=== PATIENT | female | born 2000 | race Two or more races ===

== ENCOUNTER 2022-11-29 14:05 | Emergency (ER) | payer OTHER, SELFPAY ==
[2022-11-29 14:13] VITALS: BP 123/87; PULSE 100; RESP 16; TEMP 37; O2SAT 97; BMI 43.2
--- NOTE | 2022-11-29 14:24 | CT_ITS ---
The [address] [address] Patient Name: RASTA BUENO MRN: [id number] date: 2000 Sex: F Assigned Patient Location: ER Current Patient Location: Accession/Order Number: [id number] Exam Date: 11/29/2022 14:55 Report Date: 11/29/2022 15:53 At the request of: SANAM LEE Procedure: CT soft tissue neck w con EXAMINATION: CT soft tissue neck w con HISTORY: dysphagia , throat swelling COMPARISON: No relevant comparison available. TECHNIQUE: Axial, Coronal, and Sagittal CT images created with IV contrast. Dose reduction techniques were achieved by using automated exposure control and/or adjustment of mA and/or kV according to patient size and/or use of iterative reconstruction technique. FINDINGS: NASOPHARYNX: No asymmetry of the fossae of Rosenmuller and torus tubarius. ORAL CAVITY: No visible mass. OROPHARYNX: Mild retropharyngeal soft tissue thickening and slightly prominent prevertebral lymph node. HYPOPHARYNX: Mild retropharyngeal soft tissue thickening and slightly prominent prevertebral lymph nodes. LARYNX: No mass or asymmetry of the vocal cords. SINUSES: No significant fluid or mucosal thickening. NECK GLANDS: No visible abnormality of the parotid, submandibular, and thyroid glands. LYMPH NODES: No pathological-appearing or enlarged lymph nodes. VASCULATURE: No suspicious abnormality. BONES: Slight reversal of the normal lordotic curvature; positioning versus muscle spasm. Mild degenerative disc disease. OTHER: No additional imaging findings. IMPRESSION: 1. Slight retropharyngeal soft tissue thickening and slightly prominent lymph nodes suggestive of inflammatory/process. Pharyngitis? Electronically authenticated by: MARCEL CHRISTIANSON Date: 11/29/2022 15:53
--- NOTE | 2022-11-29 14:27 | ED.GENADUL1 ---
HPI - General Adult General Chief complaint: Upper Respiratory Infection Stated complaint: SHORTNESS OF BREATH/ DIFFICULTY SWALLOWING Time Seen by Provider: 11/29/22 14:16 Source: patient Mode of arrival: walk-in History of Present Illness HPI narrative: Patient is a 22-year-old female presents to the emergency department for a two week history of sore throat, difficulty swallowing and concerned that her esophagus is swelling . She has not seen her physician for these symptoms, she states she believes she is now having difficulty swallowing although she is speaking and breathing easily at initial interview. She has had no fevers, she reports mild nasal congestion. She states initially she thought her symptoms were due to her anxiety but feels as though they are not better. She states her mother is a nurse and told her her esophagus may be swelling. She is unsure if she may be . Related Data Home Medications Medication Instructions Recorded Confirmed albuterol sulfate 2.5 mg/3 mL 2.5 mg inhalation Q4H PRN 11/29/22 11/29/22 (0.083 %) solution for nebulization shortness of breath or wheezing albuterol sulfate 90 mcg/actuation 2 puff inhalation Q6H PRN 11/29/22 11/29/22 aerosol inhaler (Ventolin HFA) shortness of breath or wheezing cholecalciferol (vitamin D3) 1,250 1,250 mcg PO .every week 11/29/22 11/29/22 mcg (50,000 unit) capsule docosahexaenoic acid (dha)-epa 120 1 cap PO DAILY 11/29/22 11/29/22 mg-180 mg capsule (Fish Oil) drospirenone 3 mg-ethinyl 1 tab PO DAILY 11/29/22 11/29/22 estradiol 0.02 mg tablet ferrous sulfate 325 mg (65 mg 325 mg PO BID 11/29/22 11/29/22 iron) tablet (FeroSul) fluoxetine 20 mg capsule 20 mg PO DAILY 11/29/22 11/29/22 hydroxyzine pamoate 25 mg capsule 25 mg PO DAILY PRN anxiety 11/29/22 11/29/22 levothyroxine 25 mcg tablet 25 mcg PO DAILY 11/29/22 11/29/22 loratadine 10 mg tablet 10 mg PO DAILY PRN allergy symptoms 11/29/22 11/29/22 Previous Rx's Medication Instructions Recorded amoxicillin 500 mg capsule 500 mg PO TID 10 days #30 caps 11/29/22 prednisone 20 mg tablet 60 mg PO DAILY #12 tabs 11/29/22 Allergies Allergy/AdvReac Type Severity Reaction Status Date / Time No Known Drug Allergies Allergy Verified 11/29/22 14:12 Review of Systems ROS Constitutional Denies: fever or chills Ears, nose, mouth, and throat Reports: throat pain, difficulty swallowing and nasal discharge Cardiovascular Denies: chest pain Respiratory Denies: shortness of breath Gastrointestinal Denies: nausea or vomiting Integumentary/Breast Denies: rash Neurological Denies: headache Psychiatric Reports: anxiety Exam Narrative Exam Narrative: Gen.: Awake, alert, in no distress Head: Normocephalic, atraumatic ENT: Moist mucous membranes, uvula is midline with no tonsillar edema or exudate. Clear speech with no trismus or drooling. Airway is widely open and patent. No redness or swelling under the tongue Respiratory: No respiratory distress, lungs clear bilaterally Cardio: Regular rate and rhythm Extremities: Moves extremities equally Psych: Normal mood and affect Neuro: No focal neuro deficit Skin: Warm, dry, intact Constitutional Vital Signs - 24 hr 11/29/22 14:13 11/29/22 14:54 Temperature 98.6 F Pulse Rate [Monitor] 100 H Respiratory Rate 16 Blood Pressure [Left Arm] 123/87 H Pulse Oximetry 97 Oxygen Delivery Method Room Air Room Air Course Vital Signs Vital signs: Vital Signs Temperature 98.6 F 11/29/22 14:13 Pulse Rate 100 H 11/29/22 14:13 Respiratory Rate 16 11/29/22 14:13 Blood Pressure 123/87 H 11/29/22 14:13 Pulse Oximetry 97 11/29/22 14:13 Oxygen Delivery Method Room Air 11/29/22 14:13 Temperature 98.6 F 11/29/22 14:13 Pulse Rate 100 H 11/29/22 14:13 Respiratory Rate 16 11/29/22 14:13 Blood Pressure 123/87 H 11/29/22 14:13 Pulse Oximetry 97 11/29/22 14:13 Oxygen Delivery Method Room Air 11/29/22 14:54 Medical Decision Making MDM Narrative Medical decision making narrative: Based on the patient's reported history, CT of the soft tissue of the neck was ordered as she had no evidence of airway compromise, or visible signs of infection at the pharynx. Urine test is negative, strep screen is negative and CT of the soft tissue of the neck shows slight retropharyngeal thickening consistent with possible pharyngitis. Patient will be treated for her symptoms based on the duration of her illness with amoxicillin and prednisone for swelling. She is in no distress with stable vital signs, no airway compromise, no trismus or drooling. Follow-up with PCP and return to the Emergency Room if symptoms change or worsen. Lab Data Labs: Lab Results 11/29/22 11/29/22 Range/Units 14:25 14:45 Urine HCG, Qual Negative (NEGATIVE) Streptococcus Screen Negative Imaging Data CT neck with contrast: Attestation: I have reviewed the pertinent imaging results. Radiologist's impression: Procedure: CT soft tissue neck w con EXAMINATION: CT soft tissue neck w con HISTORY: dysphagia , throat swelling COMPARISON: No relevant comparison available. TECHNIQUE: Axial, Coronal, and Sagittal CT images created with IV contrast. Dose reduction techniques were achieved by using automated exposure control and/or adjustment of mA and/or kV according to patient size and/or use of iterative reconstruction technique. FINDINGS: NASOPHARYNX: No asymmetry of the fossae of Rosenmuller and torus tubarius. ORAL CAVITY: No visible mass. OROPHARYNX: Mild retropharyngeal soft tissue thickening and slightly prominent prevertebral lymph node. HYPOPHARYNX: Mild retropharyngeal soft tissue thickening and slightly prominent prevertebral lymph nodes. LARYNX: No mass or asymmetry of the vocal cords. SINUSES: No significant fluid or mucosal thickening. NECK GLANDS: No visible abnormality of the parotid, submandibular, and thyroid glands. LYMPH NODES: No pathological-appearing or enlarged lymph nodes. VASCULATURE: No suspicious abnormality. BONES: Slight reversal of the normal lordotic curvature; positioning versus muscle spasm. Mild degenerative disc disease. OTHER: No additional imaging findings. IMPRESSION: 1. Slight retropharyngeal soft tissue thickening and slightly prominent lymph nodes suggestive of inflammatory/process. Pharyngitis? Electronically authenticated by: MARCEL CHRISTIANSON Date: 11/29/2022 15:53 Discharge Plan Discharge Chief Complaint: Upper Respiratory Infection Clinical Impression: Pharyngitis Patient Disposition: Home, Self-Care Time of Disposition Decision: 16:11 Condition: Good Prescriptions / Home Meds: New amoxicillin 500 mg capsule 500 mg PO TID 10 Days Qty: 30 0RF prednisone 20 mg tablet 60 mg PO DAILY Qty: 12 0RF Rx Instructions: 3 tabs daily for 2 days, then 2 tabs daily for 2 days, then 1 tab daily for 2 days No Action albuterol sulfate 2.5 mg /3 mL (0.083 %) solution for nebulization 2.5 mg inhalation Q4H PRN (Reason: shortness of breath or wheezing) albuterol sulfate [Ventolin HFA] 90 mcg/actuation HFA aerosol inhaler 2 puff INHALATION Q6H PRN (Reason: shortness of breath or wheezing) Fish Oil 120-180 mg capsule 1 cap PO DAILY drospirenone-ethinyl estradiol 3-0.02 mg tablet 1 tab PO DAILY ferrous sulfate [FeroSul] 325 mg (65 mg iron) tablet 325 mg PO BID fluoxetine 20 mg capsule 20 mg PO DAILY cholecalciferol (vitamin D3) 1,250 mcg (50,000 unit) capsule 1,250 mcg PO .every week hydroxyzine pamoate 25 mg capsule 25 mg PO DAILY PRN (Reason: anxiety) levothyroxine 25 mcg tablet 25 mcg PO DAILY loratadine 10 mg tablet 10 mg PO DAILY PRN (Reason: allergy symptoms) Instructions: Pharyngitis (ED) Stand Alone Forms: Portal Instructions Referrals: Physician,Non-Staff, MD [Primary Care Provider] - 1 week
[2022-11-29 14:59] LABS: HCG Qualitative Urine* NEGATIVE (NEGATIVE)
[2022-11-29 15:07] LABS: Internal Control Within Normal Limits; Strep A Antigen Screen Negative
[2022-11-29] MEDS: DEXAMETHASONE SODIUM PHOSPHATE 10 MG/ML VIAL PO (15:07)
--- NOTE | 2022-11-29 16:31 | PC.NURSE ---
d/c instructions complete, pt verbalized understanding. prescriptions sent to pharmacy and no resp distress at time of d/c. gait steady to exit and told to return for any problems or concerns
[2022-11-29 16:32] VITALS: RESP 18; O2SAT 97
== END 2022-11-29 16:33 | disposition home or self-care (01) ==
PROVIDERS: Physician Assistant; Emergency Provider Emergency Medicine Emergency Medical Services
DX: J02.9 Acute pharyngitis, unspecified (principal)
CPT/HCPCS: 70491; 84703; 87070; 87880; 99284; J1100; Q9967

== ENCOUNTER 2023-03-01 04:09 | Emergency (ER) | payer OTHER, SELFPAY ==
[2023-03-01 04:14] VITALS: BP 154/114; PULSE 71; RESP 16; TEMP 36.8; O2SAT 96; BMI 41.3
--- NOTE | 2023-03-01 04:28 | ED_ITS ---
HPI - Abdominal Pain General Chief Complaint: Abdominal Pain Stated Complaint: ABD PAIN Time Seen by Provider: 03/01/23 04:24 Source: patient Mode of arrival: walk-in Limitations: no limitations History of Present Illness HPI narrative: patient presents complaining of RUQ pain. States started yesterday. No vomiting or diarrhea. No fever or urinary symptoms Related Data Home Medications Medication Instructions Recorded Confirmed albuterol sulfate 2.5 mg/3 mL 2.5 mg inhalation Q4H PRN 11/29/22 03/01/23 (0.083 %) solution for nebulization shortness of breath or wheezing albuterol sulfate 90 mcg/actuation 2 puff inhalation Q6H PRN 11/29/22 03/01/23 aerosol inhaler (Ventolin HFA) shortness of breath or wheezing cholecalciferol (vitamin D3) 1,250 1,250 mcg PO .every week 11/29/22 03/01/23 mcg (50,000 unit) capsule docosahexaenoic acid (dha)-epa 120 1 cap PO DAILY 11/29/22 03/01/23 mg-180 mg capsule (Fish Oil) drospirenone 3 mg-ethinyl 1 tab PO DAILY 11/29/22 03/01/23 estradiol 0.02 mg tablet ferrous sulfate 325 mg (65 mg 325 mg PO BID 11/29/22 03/01/23 iron) tablet (FeroSul) fluoxetine 20 mg capsule 20 mg PO DAILY 11/29/22 03/01/23 hydroxyzine pamoate 25 mg capsule 25 mg PO DAILY PRN anxiety 11/29/22 03/01/23 levothyroxine 25 mcg tablet 25 mcg PO DAILY 11/29/22 03/01/23 loratadine 10 mg tablet 10 mg PO DAILY PRN allergy symptoms 11/29/22 03/01/23 Previous Rx's Medication Instructions Recorded amoxicillin 500 mg capsule 500 mg PO TID 10 days #30 caps 11/29/22 prednisone 20 mg tablet 60 mg PO DAILY #12 tabs 11/29/22 Allergies Allergy/AdvReac Type Severity Reaction Status Date / Time No Known Drug Allergies Allergy Verified 11/29/22 14:12 Review of Systems ROS Status of ROS 10 or more systems reviewed and unremarkable except as noted in history and below PFSH PFSH Social History Smoking status: Never smoker Exam Constitutional Vital Signs, click to edit/add: Last Vital Signs Temp 98.3 F 03/01/23 04:14 Pulse 71 03/01/23 04:14 Resp 16 03/01/23 04:14 BP 154/114 H 03/01/23 04:14 Pulse Ox 96 03/01/23 04:14 O2 Del Method Room Air 03/01/23 04:14 Common normals: no apparent distress, oriented x3, no limitations, healthy appearing, alert and well nourished Eye Common normals: PERRL and EOMs intact bilaterally Chest Common normals: inspection of chest normal Respiratory Common normals: normal respiratory effort, no retractions and no use of accessory muscles Cardio Common normals: regular rate, regular rhythm, S1 normal heart sound and S2 normal heart sound GI Palpation: soft and tender Details: RUQ Extremity Common normals: normal to inspection and full ROM Neuro Common normals: oriented x3, CN's II-XII intact bilaterally, moves all extremities and no focal motor deficits Psych Appearance: grossly normal Course Vital Signs Vital signs: Vital Signs Temperature 98.3 F 03/01/23 04:14 Pulse Rate 71 03/01/23 04:14 Respiratory Rate 16 03/01/23 04:14 Blood Pressure 154/114 H 03/01/23 04:14 Pulse Oximetry 96 03/01/23 04:14 Oxygen Delivery Method Room Air 03/01/23 04:14 Temperature 98.3 F 03/01/23 04:14 Pulse Rate 71 03/01/23 04:14 Respiratory Rate 16 03/01/23 04:14 Blood Pressure 154/114 H 03/01/23 04:14 Pulse Oximetry 96 03/01/23 04:14 Oxygen Delivery Method Room Air 03/01/23 04:14 MDM - Abdominal Pain MDM Narrative Medical decision making narrative: patient presents with RUQ pain. CT with evidence of gallbladder sludge. Patient contines to complain of pain. Labs WNL. GB US ordered along with bryson for pain and care transferred to Dr Poole Lab Data Labs: Lab Results 03/01/23 03/01/23 Range/Units 04:30 05:00 WBC 8.0 (4.0-11.0) 10^3/uL RBC 4.80 (4.20-5.40) 10^6/uL Hgb 14.7 (12.0-16.0) g/dL Hct 42.8 (36.0-48.0) % MCV 89.2 (81.0-99.0) fL MCH 30.6 (26.7-34.0) pg MCHC 34.3 (29.9-35.2) g/dL RDW 12.9 (11.0-15.0) % Plt Count 271 (150-450) 10^3/uL MPV 10.5 (9.5-13.5) fL Neut % (Auto) 72.5 (43.0-75.0) % Lymph % (Auto) 19.8 L (20.5-60.0) % [place] % (Auto) 4.2 (1.7-12.0) % Eos % (Auto) 2.9 (0.9-7.0) % Baso % (Auto) 0.4 (0.2-2.0) % Neut # (Auto) 5.8 (1.4-6.5) 10^3/uL Lymph # (Auto) 1.6 (1.2-3.8) 10^3/uL [place] # (Auto) 0.3 (0.3-0.8) 10^3/uL Eos # (Auto) 0.2 (0.0-0.7) 10^3/uL Baso # (Auto) 0.0 (0.0-0.1) 10^3/uL Abs Immat Gran (auto) 0.02 (0.00-0.03) 10^3/uL Imm/Tot Granulo (auto) 0.2 (0.0-0.5) % Sodium 139 (136-145) mmol/L Potassium 3.6 (3.5-5.1) mmol/L Chloride 103 (98-107) mmol/L Carbon Dioxide 28.6 (21.0-32.0) mmol/L Anion Gap 11.0 BUN 19.0 H (7.0-18.0) mg/dL Creatinine 0.70 (0.55-1.02) mg/dL Est GFR ( Amer) >60 (>=60) Est GFR (Non-Af Amer) >60 (>=60) BUN/Creatinine Ratio 27.1 Glucose 102 (74-106) mg/dL Calcium 9.0 (8.5-10.1) mg/dL Total Bilirubin 0.3 (0.2-1.0) mg/dL AST 22 (15-37) U/L ALT 45 (14-59) U/L Alkaline Phosphatase 92 (46-116) U/L Total Protein 8.0 (6.4-8.2) g/dL Albumin 3.9 (3.4-5.0) g/dL Globulin 4.1 g/dL Albumin/Globulin Ratio 1.0 Lipase 102.0 (73.0-393.0) U/L Urine Color Lt. yellow (YELLOW) Urine Clarity Clear (CLEAR) Urine pH 6.0 (5.0-9.0) Ur Specific [place] 1.020 (1.005-1.025) Urine Protein Negative (NEG/TRACE) mg/dL Urine Glucose (UA) Negative (NEGATIVE) mg/dL Urine Ketones Negative (NEGATIVE) mg/dL Urine Occult Blood Negative (NEGATIVE) Urine Nitrite Negative (NEGATIVE) Urine Bilirubin Negative (NEGATIVE) Urine Urobilinogen 1.0 (0.2-1.0) EU/dL Ur Leukocyte Esterase Small A (NEGATIVE) Urine RBC 0-2 (0-2) #/HPF Urine WBC 2-5 A (NONE SEEN) #/HPF Ur Squamous Epith Cells Many A (NONE/RARE) #/LPF Urine Crystals None seen (None Seen) #/HPF Urine Bacteria Trace A (NONE SEEN) #/HPF Urine Casts None seen (NONE SEEN) #/LPF Urine Mucus None seen (NONE SEEN) Urine HCG, Qual Negative (NEGATIVE) Discharge Plan Discharge Chief Complaint: Abdominal Pain Clinical Impression: Abdominal pain Patient Disposition: Still a Patient Prescriptions / Home Meds: No Action albuterol sulfate 2.5 mg /3 mL (0.083 %) solution for nebulization 2.5 mg inhalation Q4H PRN (Reason: shortness of breath or wheezing) albuterol sulfate [Ventolin HFA] 90 mcg/actuation HFA aerosol inhaler 2 puff INHALATION Q6H PRN (Reason: shortness of breath or wheezing) Fish Oil 120-180 mg capsule 1 cap PO DAILY drospirenone-ethinyl estradiol 3-0.02 mg tablet 1 tab PO DAILY ferrous sulfate [FeroSul] 325 mg (65 mg iron) tablet 325 mg PO BID fluoxetine 20 mg capsule 20 mg PO DAILY cholecalciferol (vitamin D3) 1,250 mcg (50,000 unit) capsule 1,250 mcg PO .every week hydroxyzine pamoate 25 mg capsule 25 mg PO DAILY PRN (Reason: anxiety) levothyroxine 25 mcg tablet 25 mcg PO DAILY loratadine 10 mg tablet 10 mg PO DAILY PRN (Reason: allergy symptoms) amoxicillin 500 mg capsule 500 mg PO TID 10 Days Qty: 30 0RF prednisone 20 mg tablet 60 mg PO DAILY Qty: 12 0RF Rx Instructions: 3 tabs daily for 2 days, then 2 tabs daily for 2 days, then 1 tab daily for 2 days Referrals: Physician,Non-Staff, MD [Primary Care Provider] - 1 week
--- NOTE | 2023-03-01 04:30 | CT_ITS ---
[address] [address] Patient Name: RASTA BUENO MRN: [id number] date: 2000 Sex: F Assigned Patient Location: ER Current Patient Location: Accession/Order Number: [id number] Exam Date: 03/01/2023 05:47 Report Date: 03/01/2023 06:35 At the request of: FARHAD FISHER Procedure: CT abdomen pelvis w con EXAMINATION: CT abdomen pelvis w con HISTORY: RUQ pain COMPARISON: No relevant comparison available. TECHNIQUE: Axial, Coronal, and Sagittal images were obtained without and/or with IV contrast as indicated by examination type. Dose reduction techniques were achieved by using automated exposure control and/or adjustment of mA and/or kV according to patient size and/or use of iterative reconstruction technique. FINDINGS: LUNG BASES: No visible pulmonary or pleural disease. LIVER: No enlargement, atrophy, suspicious density, or significant focal lesion. BILIARY: Sludge within gallbladder; no appreciable stones, wall thickening, or abnormal duct dilation. PANCREAS: No lesion, fluid collection, or abnormal duct dilatation. SPLEEN: Enlarged; 14.5 cm. ADRENALS: No mass or enlargement. KIDNEYS: No mass, obstruction, or calcification. BOWEL/MESENTERY: No visible mass, obstruction, or bowel wall thickening. Normal appendix. AORTA/VASCULAR: No aneurysm or dissection. RETROPERITONEUM: No mass or adenopathy. LYMPH NODES: No adenopathy. URINARY BLADDER: No visible focal wall thickening, lesion, or calculus. PELVIC ORGANS: Prominent nabothian cysts within right wall of cervix. No visible mass. Pelvic organs appropriate for patient age. ABDOMINAL WALL: No mass or hernia. BONES: No bony lesion or fracture. OTHER: Negative. CT/CT abdomen pelvis w con IMPRESSION: 1. Unremarkable bowel and appendix. 2.Gallbladder is filled with sludge suggesting biliary stasis. No appreciable stones or inflammatory changes. Consider ultrasound evaluation for noncalcified stones of clinically suspicious. 3.Prominent spleen, but otherwise unremarkable. Electronically authenticated by: MARCEL CHRISTIANSON Date: 03/01/2023 06:35
[2023-03-01 05:04] LABS: Basophils Percent Auto 0.4 % (0.2-2.0); Eosinophils Absolute Auto 0.2 10^3/uL (0.0-0.7); Eosinophils Percent Auto 2.9 % (0.9-7.0); Hematocrit 42.8 % (36.0-48.0); Hemoglobin 14.7 g/dL (12.0-16.0); Immature Granulocytes Abs Auto 0.02 10^3/uL (0.00-0.03); Immature Granulocytes Pct Auto 0.2 % (0.0-0.5); Lymphocytes Absolute Auto 1.6 10^3/uL (1.2-3.8); Lymphocytes Percent Auto 19.8 % (20.5-60.0); Mean Corpuscular HGB Conc 34.3 g/dL (29.9-35.2); Mean Corpuscular Hemoglobin 30.6 pg (26.7-34.0); Mean Corpuscular Volume 89.2 fL (81.0-99.0); Mean Platelet Volume 10.5 fL (9.5-13.5); Monocytes Absolute Auto 0.3 10^3/uL (0.3-0.8); Monocytes Percent Auto 4.2 % (1.7-12.0); Neutrophils Absolute Auto 5.8 10^3/uL (1.4-6.5); Neutrophils Percent Auto 72.5 % (43.0-75.0); Platelet Count 271 10^3/uL (150-450); Red Cell Distribution Width 12.9 % (11.0-15.0)
--- NOTE | 2023-03-01 05:04 | PC.NURSE ---
Urine and labs obtained and taken down to lab Pt is resting comfortably in a gown with grandmother and aunt at bedside
[2023-03-01 05:07] LABS: Bilirubin Urine NEGATIVE (NEGATIVE); Blood Urine NEGATIVE (NEGATIVE); Clarity Urine CLEAR (CLEAR); Color Urine LT. YELLOW (YELLOW); Glucose Urine UA NEGATIVE (NEGATIVE); Ketones Urine NEGATIVE (NEGATIVE); Leukocyte Esterase Urine SMALL (NEGATIVE); Nitrite Urine NEGATIVE (NEGATIVE); Protein Urine NEGATIVE (NEG/TRACE); Urine Microscopic Indicated YES
[2023-03-01 05:18] LABS: Cast Seen? NONE SEEN #/LPF (NONE SEEN); Squamous Epithelial Cell Urine MANY #/LPF (NONE/RARE)
[2023-03-01 05:23] LABS: Bacteria Urine TRACE #/HPF (NONE SEEN); Crystals Seen? None Seen #/HPF (None Seen); Mucus Urine NONE SEEN (NONE SEEN); RBC Urine 0-2 #/HPF (0-2)
[2023-03-01 05:32] LABS: HCG Qualitative Urine* NEGATIVE (NEGATIVE)
[2023-03-01 05:42] LABS: Alanine Aminotransferase 45 U/L (14-59); Albumin Level 3.9 g/dL (3.4-5.0); Alkaline Phosphatase 92 U/L (46-116); Aspartate Amino Transferase 22 U/L (15-37); BUN Creatinine Ratio 27.1; Bilirubin Total 0.3 mg/dL (0.2-1.0); Carbon Dioxide 28.6 mmol/L (21.0-32.0); Chloride 103 mmol/L (98-107); Estimated GFR (African America >60 (>=60); Estimated GFR (Non-African Ame >60 (>=60); Globulin 4.1 g/dL; Glucose 102 mg/dL (74-106); Potassium 3.6 mmol/L (3.5-5.1); Sodium 139 mmol/L (136-145)
--- NOTE | 2023-03-01 06:44 | US_ITS ---
The [address] [address] Patient Name: RASTA BUENO MRN: [id number] date: 2000 Sex: F Assigned Patient Location: ER Current Patient Location: ER Accession/Order Number: [id number] Exam Date: 03/01/2023 07:12 Report Date: 03/01/2023 08:19 At the request of: FARHAD FISHER Procedure: US right upper quadrant EXAM: US right upper quadrant HISTORY: . gallbladder . COMPARISON: None. TECHNIQUE: Grayscale and color imaging was performed FINDINGS: The body of the pancreas appears normal. The head and tail was obscured due to overlying bowel gas. Scanning of the liver demonstrates the liver to be normal in size. No masses are noted. Color-flow is noted in the portal and hepatic veins. Scanning of the gallbladder demonstrates small sand-like gallstones within the gallbladder with shadowing. There is also a small amount of sludge within the gallbladder. There is a larger gallstone noted measuring 2 cm. No gallbladder wall thickening is noted. Patient had no pain upon scanning over the gallbladder. Common bile duct is normal measuring 4 mm. Right kidney measures 12.2 x 5.3 x 4.8 cm. No solid renal cortical masses or hydronephrosis is noted. Color-flow is noted. No fluid was noted in the right upper quadrant. US/US right upper quadrant IMPRESSION: 1. Strand-like gallstones within the gallbladder along with sludge within the gallbladder. There is also a 2 cm gallstone noted. No gallbladder wall thickening is noted. Patient had no pain upon scanning over the gallbladder. 2. The body of pancreas appeared normal. The head and tail was obscured due to overlying bowel gas. 3. The remainder the right upper quadrant was unremarkable. Electronically authenticated by: KATIE LOVELACE Date: 03/01/2023 08:19
[2023-03-01] MEDS: FENTANYL CITRATE/PF 100 MCG/2 ML VIAL 50 MCG IV (07:12)
--- NOTE | 2023-03-01 08:38 | ED_ITS ---
HPI - Abdominal Pain General Chief Complaint: Abdominal Pain Stated Complaint: ABD PAIN Time Seen by Provider: 03/01/23 04:24 Source: patient Mode of arrival: walk-in Limitations: no limitations History of Present Illness HPI narrative: the patient was initially seen by Dr. Silverio and signed out to me after discussing the case with him thoroughly. Please see his full history and physical. Related Data Home Medications Medication Instructions Recorded Confirmed albuterol sulfate 2.5 mg/3 mL 2.5 mg inhalation Q4H PRN 11/29/22 03/01/23 (0.083 %) solution for nebulization shortness of breath or wheezing albuterol sulfate 90 mcg/actuation 2 puff inhalation Q6H PRN 11/29/22 03/01/23 aerosol inhaler (Ventolin HFA) shortness of breath or wheezing cholecalciferol (vitamin D3) 1,250 1,250 mcg PO .every week 11/29/22 03/01/23 mcg (50,000 unit) capsule docosahexaenoic acid (dha)-epa 120 1 cap PO DAILY 11/29/22 03/01/23 mg-180 mg capsule (Fish Oil) drospirenone 3 mg-ethinyl 1 tab PO DAILY 11/29/22 03/01/23 estradiol 0.02 mg tablet ferrous sulfate 325 mg (65 mg 325 mg PO BID 11/29/22 03/01/23 iron) tablet (FeroSul) fluoxetine 20 mg capsule 20 mg PO DAILY 11/29/22 03/01/23 hydroxyzine pamoate 25 mg capsule 25 mg PO DAILY PRN anxiety 11/29/22 03/01/23 levothyroxine 25 mcg tablet 25 mcg PO DAILY 11/29/22 03/01/23 loratadine 10 mg tablet 10 mg PO DAILY PRN allergy symptoms 11/29/22 03/01/23 Previous Rx's Medication Instructions Recorded amoxicillin 500 mg capsule 500 mg PO TID 10 days #30 caps 11/29/22 prednisone 20 mg tablet 60 mg PO DAILY #12 tabs 11/29/22 acetaminophen 300 mg-codeine 30 mg 1 tab PO Q6H PRN pain #20 tabs 03/01/23 tablet ondansetron HCl 4 mg tablet 4 mg PO Q6H PRN nausea and 03/01/23 vomiting #20 tabs Allergies Allergy/AdvReac Type Severity Reaction Status Date / Time No Known Drug Allergies Allergy Verified 11/29/22 14:12 PFSH PFSH Social History Smoking status: Never smoker Exam Constitutional Vital Signs, click to edit/add: Last Vital Signs Temp 98.3 F 03/01/23 04:14 Pulse 71 03/01/23 04:14 Resp 16 03/01/23 04:14 BP 154/114 H 03/01/23 04:14 Pulse Ox 96 03/01/23 04:14 O2 Del Method Room Air 03/01/23 04:14 Course Vital Signs Vital signs: Vital Signs Temperature 98.3 F 03/01/23 04:14 Pulse Rate 71 03/01/23 04:14 Respiratory Rate 16 03/01/23 04:14 Blood Pressure 154/114 H 03/01/23 04:14 Pulse Oximetry 96 03/01/23 04:14 Oxygen Delivery Method Room Air 03/01/23 04:14 Temperature 98.3 F 03/01/23 04:14 Pulse Rate 71 03/01/23 04:14 Respiratory Rate 16 03/01/23 04:14 Blood Pressure 154/114 H 03/01/23 04:14 Pulse Oximetry 96 03/01/23 04:14 Oxygen Delivery Method Room Air 03/01/23 04:14 MDM - Abdominal Pain MDM Narrative Medical decision making narrative: CAT scan and gallbladder ultrasound shows stones and sludge but no acute cholecystitis. Labs essentially normal. She'll be referred to surgery for follow-up. Findings are discussed with the patient and her family. Differential Diagnosis Differential diagnosis: Likely abdominal pain, calculus of kidney, constipation, diverticulitis, gastroenteritis and pancreatitis Lab Data Attestation: I reviewed the patient's lab results. Labs: Lab Results 03/01/23 03/01/23 Range/Units 04:30 05:00 WBC 8.0 (4.0-11.0) 10^3/uL RBC 4.80 (4.20-5.40) 10^6/uL Hgb 14.7 (12.0-16.0) g/dL Hct 42.8 (36.0-48.0) % MCV 89.2 (81.0-99.0) fL MCH 30.6 (26.7-34.0) pg MCHC 34.3 (29.9-35.2) g/dL RDW 12.9 (11.0-15.0) % Plt Count 271 (150-450) 10^3/uL MPV 10.5 (9.5-13.5) fL Neut % (Auto) 72.5 (43.0-75.0) % Lymph % (Auto) 19.8 L (20.5-60.0) % [place] % (Auto) 4.2 (1.7-12.0) % Eos % (Auto) 2.9 (0.9-7.0) % Baso % (Auto) 0.4 (0.2-2.0) % Neut # (Auto) 5.8 (1.4-6.5) 10^3/uL Lymph # (Auto) 1.6 (1.2-3.8) 10^3/uL [place] # (Auto) 0.3 (0.3-0.8) 10^3/uL Eos # (Auto) 0.2 (0.0-0.7) 10^3/uL Baso # (Auto) 0.0 (0.0-0.1) 10^3/uL Abs Immat Gran (auto) 0.02 (0.00-0.03) 10^3/uL Imm/Tot Granulo (auto) 0.2 (0.0-0.5) % Sodium 139 (136-145) mmol/L Potassium 3.6 (3.5-5.1) mmol/L Chloride 103 (98-107) mmol/L Carbon Dioxide 28.6 (21.0-32.0) mmol/L Anion Gap 11.0 BUN 19.0 H (7.0-18.0) mg/dL Creatinine 0.70 (0.55-1.02) mg/dL Est GFR ( Amer) >60 (>=60) Est GFR (Non-Af Amer) >60 (>=60) BUN/Creatinine Ratio 27.1 Glucose 102 (74-106) mg/dL Calcium 9.0 (8.5-10.1) mg/dL Total Bilirubin 0.3 (0.2-1.0) mg/dL AST 22 (15-37) U/L ALT 45 (14-59) U/L Alkaline Phosphatase 92 (46-116) U/L Total Protein 8.0 (6.4-8.2) g/dL Albumin 3.9 (3.4-5.0) g/dL Globulin 4.1 g/dL Albumin/Globulin Ratio 1.0 Lipase 102.0 (73.0-393.0) U/L Urine Color Lt. yellow (YELLOW) Urine Clarity Clear (CLEAR) Urine pH 6.0 (5.0-9.0) Ur Specific [place] 1.020 (1.005-1.025) Urine Protein Negative (NEG/TRACE) mg/dL Urine Glucose (UA) Negative (NEGATIVE) mg/dL Urine Ketones Negative (NEGATIVE) mg/dL Urine Occult Blood Negative (NEGATIVE) Urine Nitrite Negative (NEGATIVE) Urine Bilirubin Negative (NEGATIVE) Urine Urobilinogen 1.0 (0.2-1.0) EU/dL Ur Leukocyte Esterase Small A (NEGATIVE) Urine RBC 0-2 (0-2) #/HPF Urine WBC 2-5 A (NONE SEEN) #/HPF Ur Squamous Epith Cells Many A (NONE/RARE) #/LPF Urine Crystals None seen (None Seen) #/HPF Urine Bacteria Trace A (NONE SEEN) #/HPF Urine Casts None seen (NONE SEEN) #/LPF Urine Mucus None seen (NONE SEEN) Urine HCG, Qual Negative (NEGATIVE) Imaging Data CT abdomen, gallbladder ultrasound: Radiologist's impression: Procedure: US right upper quadrant EXAM: US right upper quadrant HISTORY: . gallbladder . COMPARISON: None. TECHNIQUE: Grayscale and color imaging was performed FINDINGS: The body of the pancreas appears normal. The head and tail was obscured due to overlying bowel gas. Scanning of the liver demonstrates the liver to be normal in size. No masses are noted. Color-flow is noted in the portal and hepatic veins. Scanning of the gallbladder demonstrates small sand-like gallstones within the gallbladder with shadowing. There is also a small amount of sludge within the gallbladder. There is a larger gallstone noted measuring 2 cm. No gallbladder wall thickening is noted. Patient had no pain upon scanning over the gallbladder. Common bile duct is normal measuring 4 mm. Right kidney measures 12.2 x 5.3 x 4.8 cm. No solid renal cortical masses or hydronephrosis is noted. Color-flow is noted. No fluid was noted in the right upper quadrant. IMPRESSION: 1. Strand-like gallstones within the gallbladder along with sludge within the gallbladder. There is also a 2 cm gallstone noted. No gallbladder wall thickening is noted. Patient had no pain upon scanning over the gallbladder. 2. The body of pancreas appeared normal. The head and tail was obscured due to overlying bowel gas. 3. The remainder the right upper quadrant was unremarkable. Electronically authenticated by: KATIE LOVELACE Date: 03/01/2023 08:19 Procedure: CT abdomen pelvis w con EXAMINATION: CT abdomen pelvis w con HISTORY: RUQ pain COMPARISON: No relevant comparison available. TECHNIQUE: Axial, Coronal, and Sagittal images were obtained without and/or with IV contrast as indicated by examination type. Dose reduction techniques were achieved by using automated exposure control and/or adjustment of mA and/or kV according to patient size and/or use of iterative reconstruction technique. FINDINGS: LUNG BASES: No visible pulmonary or pleural disease. LIVER: No enlargement, atrophy, suspicious density, or significant focal lesion. BILIARY: Sludge within gallbladder; no appreciable stones, wall thickening, or abnormal duct dilation. PANCREAS: No lesion, fluid collection, or abnormal duct dilatation. SPLEEN: Enlarged; 14.5 cm. ADRENALS: No mass or enlargement. KIDNEYS: No mass, obstruction, or calcification. BOWEL/MESENTERY: No visible mass, obstruction, or bowel wall thickening. Normal appendix. AORTA/VASCULAR: No aneurysm or dissection. RETROPERITONEUM: No mass or adenopathy. LYMPH NODES: No adenopathy. URINARY BLADDER: No visible focal wall thickening, lesion, or calculus. PELVIC ORGANS: Prominent nabothian cysts within right wall of cervix. No visible mass. Pelvic organs appropriate for patient age. ABDOMINAL WALL: No mass or hernia. BONES: No bony lesion or fracture. OTHER: Negative. IMPRESSION: 1. Unremarkable bowel and appendix. 2.Gallbladder is filled with sludge suggesting biliary stasis. No appreciable stones or inflammatory changes. Consider ultrasound evaluation for noncalcified stones of clinically suspicious. 3.Prominent spleen, but otherwise unremarkable. Electronically authenticated by: MARCEL CHRISTIANSON Date: 03/01/2023 06:35 Discharge Plan Discharge Chief Complaint: Abdominal Pain Clinical Impression: Cholelithiasis Patient Disposition: Home, Self-Care Time of Disposition Decision: 08:34 Condition: Good Mode of Transportation: Private Vehicle Prescriptions / Home Meds: New acetaminophen-codeine 300-30 mg tablet 1 tab PO Q6H PRN (Reason: pain) Qty: 20 0RF ondansetron HCl 4 mg tablet 4 mg PO Q6H PRN (Reason: nausea and vomiting) Qty: 20 0RF No Action albuterol sulfate 2.5 mg /3 mL (0.083 %) solution for nebulization 2.5 mg inhalation Q4H PRN (Reason: shortness of breath or wheezing) albuterol sulfate [Ventolin HFA] 90 mcg/actuation HFA aerosol inhaler 2 puff INHALATION Q6H PRN (Reason: shortness of breath or wheezing) Fish Oil 120-180 mg capsule 1 cap PO DAILY drospirenone-ethinyl estradiol 3-0.02 mg tablet 1 tab PO DAILY ferrous sulfate [FeroSul] 325 mg (65 mg iron) tablet 325 mg PO BID fluoxetine 20 mg capsule 20 mg PO DAILY cholecalciferol (vitamin D3) 1,250 mcg (50,000 unit) capsule 1,250 mcg PO .every week hydroxyzine pamoate 25 mg capsule 25 mg PO DAILY PRN (Reason: anxiety) levothyroxine 25 mcg tablet 25 mcg PO DAILY loratadine 10 mg tablet 10 mg PO DAILY PRN (Reason: allergy symptoms) amoxicillin 500 mg capsule 500 mg PO TID 10 Days Qty: 30 0RF prednisone 20 mg tablet 60 mg PO DAILY Qty: 12 0RF Rx Instructions: 3 tabs daily for 2 days, then 2 tabs daily for 2 days, then 1 tab daily for 2 days Instructions: Gallstones (ED), Laparoscopic Cholecystectomy (DC) Additional Instructions: Follow-up with Dr. Galdamez Stand Alone Forms: Portal Instructions Referrals: Physician,Non-Staff, MD [Primary Care Provider] - 1 week
== END 2023-03-01 08:53 | disposition home or self-care (01) ==
PROVIDERS: Internal Medicine; Emergency Provider Emergency Medicine
DX: K80.20 Calculus of gallbladder without cholecystitis without obstruction (principal); Z79.899 Other long term (current) drug therapy; Z79.890 Hormone replacement therapy
CPT/HCPCS: 36415; 74177; 76705; 80053; 81001; 83690; 84703; 85025; 96374; 99285; Q9967

== ENCOUNTER 2023-03-07 12:21 | Outpatient (OUT) | payer OTHER, SELFPAY | END 2023-03-07 12:22 | disposition home or self-care (01) | LOC: PST 12:21 | PROVIDERS: Visit Provider Surgery | DX: Z01.818 Encounter for other preprocedural examination (principal); K80.20 Calculus of gallbladder without cholecystitis without obstruction ==

== ENCOUNTER 2023-03-10 07:29 | Day surgery (SDC) | payer OTHER, SELFPAY ==
[2023-03-07 12:53] VITALS: BP 131/89; PULSE 66; RESP 20; TEMP 36.6; O2SAT 98; BMI 40.6
[2023-03-10] VITALS (14 sets, daily range): BP systolic 102–134; BP diastolic 59–94; PULSE 71–97; RESP 15–26; TEMP 36.2–36.6; O2SAT 91–100; BMI 40.7
[2023-03-10] MEDS: LACTATED RINGER'S SOLUTION 1,000 ML 50 ML IV ×3 (08:00→11:57)
[2023-03-10 08:10] LABS: HCG Qualitative NEGATIVE (NEGATIVE)
[2023-03-10] MEDS: INDOCYANINE GREEN 25 MG VIAL INJ (08:17)
[2023-03-10] MEDS: CEFAZOLIN SODIUM/DEXTROSE,ISO 2 GM/50 ML PIGGYBACK IV (08:36)
--- NOTE | 2023-03-10 08:49 | PM.GSPRC ---
Indications for Procedure: This patient is a #-year-old #male who was recently seen for episodes of right upper quadrant pain. Gallbladder ultrasound revealed cholelithiasis. Robotic cholecystectomy was recommended. The risks benefits options and potential complications of the procedure were discussed in detail with the patient and they agreed to proceed and consent was signed. Pre-op diagnosis: symptomatic cholelithiasis Post-op diagnosis: same as pre-op Procedure: robotic cholecystectomy with ICG cholangiogram [facility] Surgeon: Eran Galdamez Procedure Summary: The patient was brought to the operating room placed in the supine position. Gen. anesthesia was induced and the patient was intubated. The abdomen was prepped and draped in usual sterile fashion. She had been given preoperative IV antibiotics and was also given preoperative ICG. A site in the left upper quadrant was infiltrated with half percent Marcaine with epinephrine. A small incision was made. A 12 mm port was placed through this incision and advanced into the peritoneal cavity under laparoscopic guidance. The abdomen was then insufflated to 15 mmHg of carbon dioxide. The camera was reintroduced and safe port site entry was confirmed. Three 8 mm robotic ports were then placed, one at the umbilicus and two in the right lateral abdomen following local anesthesia under direct visualization. The camera was removed and an additional 8 mm port was placed through the 12 mm port. the patient was then placed in reverse Trendelenburg position and banked to the left. At this time the da Thalia XI was brought to the field and camera was introduced and all ports direct and instruments introduced in standard fashion.at this time I left the operating table and attended the surgeon console. The fundus of the gallbladder is grasped and retracted cephalad. The region of Werner's pouch was grasped and retracted laterally. Dissection was carried out in the region of the triangle of Calot. The cystic duct was readily identified. This was confirmed with firefly.. This was then divided between clips. Posterior to this the cystic artery was identified. This was divided after clip placement. The gallbladder was then taken off the liver using electrocautery. Excellent hemostasis and secured clip placement was noted. The gallbladder was then placed in a retrieval bag. This was brought out through the 12 mm port site intact. Instruments, camera and ports were subsequently removed, U da Thalia X was undocked and the abdomen was desufflated. Skin incisions were closed with subcuticular sutures of 4-0 Vicryl. Sterile dressings were applied. The patient tolerated the procedure well and was transferred to the recovery area in stable condition. Estimated blood loss (mL): 2 Specimens: gallbladder Complications: No
[2023-03-10] MEDS: BUPIVACAINE HCL 0.5% PF 50 MG/10 ML VIAL 20 ML INJ (09:16)
--- NOTE | 2023-03-10 12:40 | P.GSPRC_ITS ---
Date of procedure: 03/10/23 Indications for Procedure: This patient is a 22-year-old female who was recently seen for episodes of right upper quadrant pain. Gallbladder ultrasound revealed cholelithiasis. Robotic cholecystectomy was recommended. The risks benefits options and potential complications of the procedure were discussed in detail with the patient and they agreed to proceed and consent was signed. Pre-op diagnosis: symptomatic cholelithiasis Post-op diagnosis: other (acute cholecystitis with cholelithiasis) Procedure: robotic cholecystectomy with ICG cholangiogram, placement of THIERNO drain Anesthesia: [facility] Surgeon: Eran Galdamez Procedure Summary: The patient was brought to the operating room placed in the supine position. Gen. anesthesia was induced and the patient was intubated. The abdomen was prepped and draped in usual sterile fashion. She had been given preoperative IV antibiotics and was also given preoperative ICG. A site in the left upper quadrant was infiltrated with half percent Marcaine with epinephrine. A small incision was made. A 12 mm port was placed through this incision and advanced into the peritoneal cavity under laparoscopic guidance. The abdomen was then insufflated to 15 mmHg of carbon dioxide. The camera was reintroduced and safe port site entry was confirmed. Three 8 mm robotic ports were then placed, one at the umbilicus and two in the right lateral abdomen following local anesthesia under direct visualization. The camera was removed and an additional 8 mm port was placed through the 12 mm port. the patient was then placed in reverse Trendelenburg position and banked to the left. At this time the da Thalia XI was brought to the field and camera was introduced and all ports direct and in struments introduced in standard fashion.at this time I left the operating table and attended the surgeon console. readily identified was a markedly distended inflamed gallbladder with omentum adherent to it. With blunt dissection the omentum was taken down. To allow grasping of the gallbladder a defect was made in the gallbladder wall using cautery and the contents mainly bile aspirated with the robotic section. The fundus of the gallbladder was now grasped and retracted cephalad. The region of Werner's pouch was grasped and retracted laterally. Dissection was now carried out in the triangle of calot. This area was also markedly inflamed. Upon careful dissection the cystic duct was identified and confirmed with firefly. This was subsequently divided between clips. The cystic artery was then identified and again divided between clips. The gallbladder was then taken off the liver using electrocautery. This was quite tedious due to the marked inflammation and large size of the gallbladder. This was subsequently achieved. A few small bleeding points were controlled using electrocautery. During the course of dissection a few stones were extruded from the gallbladder. These were brought onto the omentum for later retrieval. Two clips that were not deployed were also placed in this area for retrieval. The gallbladder fossa was then copiously irrigated and aspirated. Hemostasis was noted. In the region of the clips there was an area of questionable small amount of bile from repair to be a small defect in the liver bed. This was minimal. I did decide to apply Tisseel to this area covering that site as well as the clips. Hemostasis was noted. A THIERNO drain was then brought through one of the ports and placed into the gallbladder fossa. The drain was then sutured in place at the skin. The retrieval bag was then brought into the peritoneal cavity. The gallbladder stones and two clips were placed in the bag. No other abnormalities were noted. The da Thalia XI was then undocked. The abdomen was desufflated and all ports and instruments removed. The left upper quadrant incision had to be extended as well as a fascial incision to allow removal of the gallbladder bladder in the retrieval bag. Hemostasis was noted here. The small fascial defect was closed with a [id number] suture of 0 Vicryl. Skin incisions were closed with subcuticular sutures of 4-0 Vicryl. Drain is placed to bulb suction. Sponge and needle counts were correct at the end of the procedure. The patient tolerated the procedure well and was transferred to the recovery area in stable condition. Estimated blood loss (mL): 30 Specimens: gallbladder Complications: No
[2023-03-10] MEDS: MEPERIDINE HCL/PF 25 MG/ML VIAL IVP (12:42)
--- NOTE | 2023-03-10 12:52 | PC.NURSE ---
emptied 30 ml of serous sangunious fluids from [facility].
--- NOTE | 2023-03-10 13:15 | PC.NURSE ---
Patient stated her pain feels like she was punched in the stomach. verbalizes it is tolerable.
== END 2023-03-10 13:47 | disposition home or self-care (01) ==
PROVIDERS: Visit Provider Surgery
PROC: (CPT 790; principal; 2023-03-10 08:30)
DX: K80.00 Calculus of gallbladder with acute cholecystitis without obstruction (principal); E66.01 Morbid (severe) obesity due to excess calories; Z68.41 Body mass index [BMI] 40.0-44.9, adult
CPT/HCPCS: 47563; 36415; 84703; 88304; J2704

== ENCOUNTER 2023-08-20 22:03 | Emergency (ER) | payer OTHER, SELFPAY ==
[2023-08-20 22:09] VITALS: BP 148/90; PULSE 81; RESP 18; TEMP 36.8; O2SAT 96; BMI 43.5
--- NOTE | 2023-08-20 22:15 | PC.NURSE ---
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 Pt denies attempts at home to get ring out.
[2023-08-20 22:31] VITALS: PULSE 70; RESP 16; O2SAT 97
--- NOTE | 2023-08-20 23:00 | ED.GENADUL1 ---
HPI - General Adult General Chief complaint: Skin/Abscess/Foreign Body Stated complaint: nose ring stuck Time Seen by Provider: 08/20/23 22:06 Source: patient and family Mode of arrival: walk-in Limitations: no limitations History of Present Illness HPI narrative: 23-year-old female to the emergency department with chief complaint of nasal study is not in the correct position. She reports that she got a three weeks ago. She noticed over the last three days that it was not showing any more externally however she could still see the back end of the in her [place]. She denies any discharge or pain. No redness or. she is otherwise at her baseline health. Related Data Home Medications Medication Instructions Recorded Confirmed albuterol sulfate 2.5 mg/3 mL 2.5 mg inhalation Q4H PRN 11/29/22 03/07/23 (0.083 %) solution for nebulization shortness of breath or wheezing albuterol sulfate 90 mcg/actuation 2 puff inhalation Q6H PRN 11/29/22 03/07/23 aerosol inhaler (Ventolin HFA) shortness of breath or wheezing cholecalciferol (vitamin D3) 1,250 1,250 mcg PO .every week 11/29/22 03/07/23 mcg (50,000 unit) capsule docosahexaenoic acid (dha)-epa 120 1 cap PO DAILY 11/29/22 03/07/23 mg-180 mg capsule (Fish Oil) drospirenone 3 mg-ethinyl 1 tab PO DAILY 11/29/22 03/07/23 estradiol 0.02 mg tablet ferrous sulfate 325 mg (65 mg 325 mg PO BID 11/29/22 03/07/23 iron) tablet (FeroSul) fluoxetine 20 mg capsule 20 mg PO DAILY 11/29/22 03/07/23 levothyroxine 25 mcg tablet 25 mcg PO DAILY 11/29/22 03/07/23 loratadine 10 mg tablet 10 mg PO DAILY PRN allergy symptoms 11/29/22 03/07/23 Previous Rx's Medication Instructions Recorded amoxicillin 500 mg capsule 500 mg PO TID 10 days #30 caps 11/29/22 acetaminophen 300 mg-codeine 30 mg 1 tab PO Q6H PRN pain #20 tabs 03/01/23 tablet ondansetron 4 mg disintegrating 4 mg PO Q6H PRN nausea and 03/01/23 tablet vomiting #20 tabs hydrocodone 5 mg-acetaminophen 325 1 tab PO Q6H PRN pain #16 tabs 03/10/23 mg tablet bacitracin 500 unit/gram topical 1 applic topical BID 7 days #14 08/20/23 ointment grams Allergies Allergy/AdvReac Type Severity Reaction Status Date / Time No Known Drug Allergies Allergy Verified 08/20/23 22:09 Review of Systems ROS Status of ROS 10 or more systems reviewed and unremarkable except as noted in history and below [facility] History (Updated 08/20/23 @ 22:25 by Richard Fan MD) History of blood transfusion (01/2023) ?Z92.89 - Personal history of other medical treatment (ICD-10) Anemia ?D64.9 - Anemia, unspecified (ICD-10) Depression ?F32.A - Depression, unspecified (ICD-10) Anxiety ?F41.9 - Anxiety disorder, unspecified (ICD-10) Asthma ?J45.909 - Unspecified asthma, uncomplicated (ICD-10) Seasonal allergies ?J30.2 - Other seasonal allergic rhinitis (ICD-10) GERD (gastroesophageal reflux disease) ?K21.9 - Gastro-esophageal reflux disease without esophagitis (ICD-10) Hypothyroidism ?E03.9 - Hypothyroidism, unspecified (ICD-10) Surgical History (Updated 03/07/23 @ 12:38 by Joana Torres NP) History of liver biopsy ?Z98.890 - Other specified postprocedural states (ICD-10) History of tonsillectomy ?Z90.89 - Acquired absence of other organs (ICD-10) Family History (Updated 03/07/23 @ 12:42 by Joana Torres NP) Other Family history of DVT Family history of breast cancer Family history of coronary artery disease Family history of diabetes mellitus Family history of heart disease Family history of hypertension Family history of leukemia Family history of myocardial infarction Family history of pulmonary embolism Family history of renal failure Family history of seizures Social History (Updated 03/07/23 @ 12:38 by Joana Torres NP) Within the past year, how often did you have a drink containing alcohol: never Score interpretation: A score less than 3 is consistent with normal alcohol consumption. Smoking status: Never smoker Non-prescribed substance use: denies use Highest level of school completed/degree received: high school graduate Exam Narrative Exam Narrative: VITALS: I have reviewed the triage vital signs. GENERAL: Well developed, well appearing adult in no acute distress. NEURO: Alert and oriented. Moves all extremities. Face is symmetric and expressive. EYES: PERRL. No scleral icterus or conjunctival injection. No discharge. HENT: Normocephalic, atraumatic. Hearing is grossly intact. Nares grossly patent and without discharge. Mucous membranes moist. Visible nasal started in the right near without external jewel visible. SKIN: Warm and dry. Normal turgor. No rash or lesions appreciated. PSYCH: Mood, affect, and interaction is appropriate to the setting. Constitutional Vital Signs, click to edit/add: Last Vital Signs Temp 98.2 F 08/20/23 22:09 Pulse 70 08/20/23 22:31 Resp 16 08/20/23 22:31 BP 148/90 H 08/20/23 22:09 Pulse Ox 97 08/20/23 22:31 O2 Del Method Room Air 08/20/23 22:31 Course Vital Signs Vital signs: Vital Signs Temperature 98.2 F 08/20/23 22:09 Pulse Rate 81 08/20/23 22:09 Respiratory Rate 18 08/20/23 22:09 Blood Pressure 148/90 H 08/20/23 22:09 Pulse Oximetry 96 08/20/23 22:09 Oxygen Delivery Method Room Air 08/20/23 22:09 Temperature 98.2 F 08/20/23 22:09 Pulse Rate 70 08/20/23 22:31 Respiratory Rate 16 08/20/23 22:31 Blood Pressure 148/90 H 08/20/23 22:09 Pulse Oximetry 97 08/20/23 22:31 Oxygen Delivery Method Room Air 08/20/23 22:31 Medical Decision Making MDM Narrative Medical decision making narrative: Patient gave verbal consent for removal of the stud. A pair of forceps were used to easily remove the nasal stud internally from her [place]. It appears that this instead was pushed back into her nare near completely. Patient tolerated the procedure well and there was no complication. She was given bacitracin ointment to place in her narrative. Return precautions discussed. All questions were answered. The patient was discharged home. Discharge Plan Discharge Stand Alone Forms: Portal Instructions Chief Complaint: Skin/Abscess/Foreign Body Clinical Impression: FB (nasal foreign body) Patient Disposition: Home, Self-Care Condition: Good Mode of Transportation: Private Vehicle Prescriptions / Home Meds: New bacitracin 500 unit/gram ointment 1 applic topical BID 7 Days Qty: 14 0RF No Action albuterol sulfate 2.5 mg /3 mL (0.083 %) solution for nebulization 2.5 mg inhalation Q4H PRN (Reason: shortness of breath or wheezing) albuterol sulfate [Ventolin HFA] 90 mcg/actuation HFA aerosol inhaler 2 puff INHALATION Q6H PRN (Reason: shortness of breath or wheezing) Fish Oil 120-180 mg capsule 1 cap PO DAILY drospirenone-ethinyl estradiol 3-0.02 mg tablet 1 tab PO DAILY ferrous sulfate [FeroSul] 325 mg (65 mg iron) tablet 325 mg PO BID fluoxetine 20 mg capsule 20 mg PO DAILY cholecalciferol (vitamin D3) 1,250 mcg (50,000 unit) capsule 1,250 mcg PO .every week levothyroxine 25 mcg tablet 25 mcg PO DAILY loratadine 10 mg tablet 10 mg PO DAILY PRN (Reason: allergy symptoms) amoxicillin 500 mg capsule 500 mg PO TID 10 Days Qty: 30 0RF acetaminophen-codeine 300-30 mg tablet 1 tab PO Q6H PRN (Reason: pain) Qty: 20 0RF ondansetron 4 mg tablet,disintegrating 4 mg PO Q6H PRN (Reason: nausea and vomiting) Qty: 20 0RF hydrocodone-acetaminophen 5-325 mg tablet 1 tab PO Q6H PRN (Reason: pain) Qty: 16 0RF Print Language: Greenlandic Instructions: Normal Exam (ED) Referrals: Physician,Non-Staff, MD [Primary Care Provider] - 1 week Discharge Date/Time: 08/20/23 22:30
== END 2023-08-20 22:30 | disposition home or self-care (01) ==
PROVIDERS: Emergency Provider Student in an Organized Health Care Education/Training Program
DX: T17.1XXA Foreign body in nostril, initial encounter (principal); W44.E4XA Non-magnetic metal jewelry entering into or through a natural orifice, initial encounter; Z79.899 Other long term (current) drug therapy; F32.A Depression, unspecified; F41.9 Anxiety disorder, unspecified; J45.909 Unspecified asthma, uncomplicated; E03.9 Hypothyroidism, unspecified; K21.9 Gastro-esophageal reflux disease without esophagitis; Z98.890 Other specified postprocedural states; Z90.89 Acquired absence of other organs
CPT/HCPCS: 99283